=== PATIENT | female | born 1970 | race Caucasian/White ===

== ENCOUNTER 2017-12-21 12:18 | Observation (INO) | payer MEDICAID ==
[~2017-12-21] VITALS: Ht 177.8 cm; Wt 90.6 kg
[~2017-12-21 12:18] MED LIST: BAYER BACK & B1 EACH PO; CALCIUM ACETAT667 MG PO; DEPAKOTE ER500 MG PO; MIDODRINE HCL 55 M1 PO
[2017-12-21 12:21] VITALS: BP 140/83
[2017-12-21] MEDS ORDERED: LEXAPRO 10 MG T10 M1 PO (12:23)
[2017-12-21] MEDS ORDERED: ASPIR 8181 MG PO (12:23)
[2017-12-21 13:55] LABS: ABSOLUTE BASOPHILS 0.1 thou/uL (0.0-0.2); ABSOLUTE EOSINOPHILS 0.4 thou/uL (0.0-0.7); ABSOLUTE LYMPHOCYTES 2.3 thou/uL (0.8-5.3); ABSOLUTE MONOCYTES 0.6 thou/uL (0.0-1.2); ABSOLUTE NEUTROPHILS 5.6 thou/uL (1.6-8.1); EOSINOPHILS 4.8 %; HEMATOCRIT 38.9 % (37.0-47.0); HEMOGLOBIN 12.7 gm/dL (12.0-15.0); LYMPHOCYTES 25.5 %; MCH 30.6 pg (26.0-34.0); MCHC 32.6 g/dL (28.0-37.0); MCV 93.8 fL (80.0-100.0); MONOCYTES 6.9 %; MPV 10.6 fl. (7.2-11.1); NUCLEATED RBCS 0 /100WBC; PLATELET COUNT* 163 thou/uL (150-400); POLYS 61.8 %; RBC 4.14 mil/uL (4.20-5.00); RDW-CV 14.5 % (10.5-14.5)
[2017-12-21 14:03] LABS: URINE BILIRUBIN NEGATIVE (Negative); URINE BLOOD NEGATIVE (Negative); URINE CLARITY CLEAR; URINE COLOR YELLOW; URINE GLUCOSE-RANDOM NEGATIVE (Negative); URINE KETONES NEGATIVE (Negative); URINE LEUKOCYTES-REFLEX NEGATIVE (Negative); URINE NITRITE-REFLEX NEGATIVE (Negative); URINE PROTEIN NEGATIVE (Negative); URINE UROBILINOGEN 0.2 E.U./dl (0.2-1.0)
[2017-12-21 14:05] LABS: ANION GAP 5 mmol/L (7-16); APTT 27.6 Seconds (25.0-31.3); BUN 25 mg/dL (7-18); CALCIUM 9.1 mg/dL (8.5-10.1); CHLORIDE 105 mmol/L (98-107); CO2 27 mmol/L (21-32); GLUCOSE 91 mg/dL (70-99); INR 1.1; POTASSIUM 4.4 mmol/L (3.5-5.1); PROTIME 10.7 Seconds (9.20-11.50); SODIUM 137 mmol/L (136-145)
[2017-12-21 14:11] LABS: AMP/METHAMP Negative (Negative); BARBITURATES Negative (Negative); BENZODIAZEPINES Negative (Negative); COCAINE Negative (Negative); METHADONE Negative (Negative); OPIATES Negative (Negative); PCP Negative (Negative); THC Negative (Negative)
[2017-12-21 14:12] LABS: ALBUMIN 3.1 g/dL (3.4-5.0); ALKALINE PHOSPHATASE 86 U/L (46-116); LIPASE 136 U/L (73-393); SGOT 24 U/L (15-37); SGPT 32 U/L (30-65); TOTAL BILIRUBIN 0.1 mg/dL (<0.1-1.0); TROPONIN-I LEVEL <0.06 ng/mL (<0.06)
--- NOTE | 2017-12-21 16:57 | EKG ---
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
[2017-12-21 19:38] VITALS: BP 132/80
[2017-12-21 20:00] VITALS: BP 125/63
[2017-12-22 00:51] VITALS: BP 84/47
[2017-12-22 02:17] VITALS: BP 88/50
[2017-12-22 04:10] VITALS: BP 92/51
--- NOTE | 2017-12-22 05:01 | NUR ---
PT ARRIVED ON UNIT AT 1999 FROM ER VIA STRETCHER PT AMBULATED TO ROOM ORIENTED TO SURROUNDING, VS AND ASSESSMENT STABLE PT NSR ON THE MONITOR. PT REQUESTED TYLENOL FOR HEADACHE WITH POSITIVE EFFECT PT SLEPT THROUGH THE NIGHT WITHNO FURTHER COMPLAINTS. PTS BP SOFT BUT PT WAS ASYMPTOMATIC. WILL MONITOR
[2017-12-22 05:04] LABS: ABSOLUTE BASOPHILS 0.1 thou/uL (0.0-0.2); ABSOLUTE EOSINOPHILS 0.7 thou/uL (0.0-0.7); ABSOLUTE LYMPHOCYTES 3.4 thou/uL (0.8-5.3); ABSOLUTE MONOCYTES 0.6 thou/uL (0.0-1.2); ABSOLUTE NEUTROPHILS 3.7 thou/uL (1.6-8.1); BASOPHILS 1.7 %; EOSINOPHILS 7.8 %; HEMATOCRIT 34.8 % (37.0-47.0); HEMOGLOBIN 11.7 gm/dL (12.0-15.0); MCH 30.3 pg (26.0-34.0); MCHC 33.5 g/dL (28.0-37.0); MCV 90.6 fL (80.0-100.0); MONOCYTES 7.1 %; NUCLEATED RBCS 0 /100WBC; PLATELET COUNT* 148 thou/uL (150-400); POLYS 43.4 %; RBC 3.85 mil/uL (4.20-5.00); RDW-CV 13.7 % (10.5-14.5); WBC 8.5 thou/uL (4.0-11.0)
[2017-12-22 05:39] LABS: CALCIUM 8.7 mg/dL (8.5-10.1); POTASSIUM 4.8 mmol/L (3.5-5.1)
[2017-12-22 08:00] VITALS: BP 89/52
--- NOTE | 2017-12-22 10:39 | NUR ---
MET WITH PT TO DISCUSS HOME SITUATION/DC PLANNING. PT LIVES WITH HER DTR IN [place]. STATES IS INDEPENDENT 'BUT NOT HOW I USED TO BE.' SHE IS NOT DRIVING YET AFTER A PROLONGED ILLNESS. FAMILY ASSISTS. PT USES NO EQUIPMENT OR HOME CARE. PLANS TO RETURN HOME AT DC. HAS F/U APPTS AT IN PLACE. DENIES DC NEEDS. HOPES TO GO HOME TODAY
[2017-12-22 12:13] VITALS: BP 102/56
--- NOTE | 2017-12-22 15:55 | EXE ---
[place] [address] STRESS ECHOCARDIOGRAM Name: STEPHENIE POWELL Room: [address] MIsmael#: [id number] Admission: 12/21/17 Attend Phys: Justin Werner Discharge: Date of : 70 Date of Service: 12/22/17 1555 Report #: [id number] THIS REPORT FOR: //name// APPROVED REPORT Exam: Stress Echocardiogram Indication: Chest pain Patient Location: In-Patient Stress Nurse: Rema Hough RN Room #: [facility] Supervising Physician: Molina Webb MD Ht: 5 ft 10 in HR: 55 bpm BP: 106/60 mmHg Medical History Cardiac Risk Factors: Tobacco History (Former) Procedure The patient underwent an Exercise Stress Test using the Steven Protocol. Blood pressure, heart rate, and EKG were monitored. An Echocardiogram was performed by nutrition technician in four stages in quad fashion. At peak stress, four selected images were obtained and placed side by side with resting images for comparison. Stress Test Details Stress Test: Exercise stress testing was performed using a Steven protocol. HR Resting HR: 55 bpm Max Heart Rate (APMHR): 173 bpm Max HR Achieved: 152 bpm Target HR (85% APMHR): 147 bpm % of APMHR: 87 Recovery HR: 82 bpm HR response to stress: Normal HR response to stress BP Resting BP: 106/60 mmHg Max BP: 189/89 mmHg Recovery BP: 147/83 mmHg ECG Resting ECG: Sinus Rhythm Stress ECG: Sinus Rhythm, nonspecific ST-T abnormalities ST Change: Upsloping ST depression Maximum ST Deviation: 0.5 [place] [address] STRESS ECHOCARDIOGRAM Name: STEPHENIE POWELL Room: [address]#: [id number] Admission: 12/21/17 Attend Phys: Justin Werner Discharge: Date of : 70 Date of Service: 12/22/17 1555 Report #: [id number] Recovery ECG: Sinus Rhythm, nonspecific ST-T abnormalities Recovery ST Change: Horizontal ST depression Recovery ST Deviation: 0.5 mm Clinical Exercise duration: 5 min 58 sec Highest Stage Achieved: Stage 2: 2.5 mph at 12% grade. Exercise capacity: 7.05 METs Pre-Stress Echo The resting Echocardiogram showed normal left ventricular contractility with an estimated Ejection Fraction of about 55-60%. Post-Stress Echo The stress Echocardiogram showed normal left ventricular contractility with an estimated Ejection Fraction of about 65-70%. Conclusion Clinical Response: Non-ischemic Exercise Capacity: Below Average Stress ECG Response: Indeterminant Stress Echo Images: Non-ischemic nondiagnostic stress echo for ischemia secondary to inability to achieve target heart rate Other Information Study Quality: Good <Conclusion> nondiagnostic stress echo for ischemia secondary to inability to achieve target heart rate <ELECTRONICALLY SIGNED> By: Molina Webb MD, FACC 12/22/17 1555 1555 1555 Molina Webb MD, FACC /INF
[2017-12-22 16:17] VITALS: BP 103/63
--- NOTE | 2017-12-22 18:06 | NUR ---
ASSUMED CARE OF PT AT 0730. PT A&O X4 CALM AND COOPERATIVE. THE PT WENT DOWN TO HAVE A STRESS ECHO TODAY AND UPON RETURN ASKED THIS NURSE ABOUT LEAVING. PT STATED SHE WAAS TOLD THAT SHE COULD LEAVE AFTER THE TEST BY SEVERAL DOCTORS. SHE STATED THAT SHE WISHES TO LEAVE AMA, NEUROLOGY HAD NOT SIGNED OFF ON THE PT YET. PT WAS EDUCATED ON THE RISK OF AMA DISCHARGE AND VERBALLIZED UNDERSTANDING. IV AND COMPUTER AIDED DRAFTER WERE REMOVED, PT DENIES ANY PAIN INCLUDING CHEST PAIN AND VS AT THIS TIME ARE BP 96/60, HR 64, RESP. 17. TEMP. 98.3, AND O2 SAT 99% ON ROOM AIR.
--- NOTE | 2017-12-23 16:38 | CON ---
[address] [address] CONSULTATION Name: STEPHENIE POWELL Room: [address] Ann Whyte#: [id number] Admission: 12/21/17 Attend Phys: Sasha Kidd Discharge: 12/22/17 Date of : 70 Report #: [id number] THIS REPORT FOR: //name// CC: Tanner Werner ____ Maren DATE OF SERVICE: 12/22/2017 HISTORY OF PRESENT ILLNESS: The patient is a 47-year-old single white female who I was asked to see in the hospital after she complained of chest pain. The patient has no previous history of heart disease. She actually presented here to [facility] last July. The patient was found on the floor of her bathroom. 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 She went into atrial fibrillation. She is on IV diltiazem, saw Dr. Henry. She required dialysis for renal failure. She was hypotensive. She eventually was transferred to and was there for 2 weeks. She is now back home. 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 She has been going for walks recently. Yesterday, she was at home, felt heaviness in her chest. She has had some pain in her left shoulder. She felt lightheaded, short of breath and nauseated. Her sister brought her to the Emergency Room and she was admitted. She denied any trauma to the shoulder. She denied any chest pain related to food. She has had no blood in stool. She denied any trauma to her chest or rash. She denies exertional dyspnea, palpitations or syncope. She has had no edema. PAST MEDICAL HISTORY: Otherwise significant for back surgery. She has no history of hypertension, diabetes, or hyperlipidemia. ALLERGIES: She is on no medications. FAMILY HISTORY: Her grandfather had coronary bypass surgery. SOCIAL HISTORY: She is single, lives in [place] with a friend. 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 She used to be a smoker, quit in July. No alcohol, no illicit drug use. REVIEW OF SYSTEMS: She has had a history of stroke, asthma. She has a history of dyspepsia. No liver disease. She has had kidney stones. No cancer, no psychiatric illness. PHYSICAL EXAMINATION: GENERAL: Revealed a middle-aged female, lying in bed. She appeared in no distress. VITAL SIGNS: She had a blood pressure of 100/60, pulse 60. [place] [address] CONSULTATION Name: STEPHENIE POWELL Room: [address] Ann Whyte#: [id number] Admission: 12/21/17 Attend Phys: Sasha Kidd Discharge: 12/22/17 Date of : 70 Report #: [id number] HEENT: She was anicteric, conjunctiva pink. Mucous members appear moist. NECK: Veins nondistended. No carotid bruits. Neck is supple. CHEST: Clear to auscultation. CARDIOVASCULAR: Regular rate and rhythm. No significant murmur. ABDOMEN: Soft, nontender. EXTREMITIES: Had no edema. Posterior tibial pulse 2+ bilaterally. SKIN: Warm, dry. NEUROLOGIC: Nonfocal. Her ECG showed a sinus rhythm. There was no ST or T-wave change. LABORATORY DATA: Sodium 144, BUN 21, creatinine 1.0. Liver function studies were normal. Troponin 0.06. Her white blood cell count was 8.5, hematocrit 34.8. X-rays in the emergency room yesterday, she had portable chest x-ray that showed no acute abnormality. CT scan of the head performed without contrast showed no acute abnormality. IMPRESSION AND RECOMMENDATIONS: 1. Chest pain. Atypical for angina. The patient has minimal risk factors. I suspect her pain is noncardiac. Recommend no cardiac evaluation at this time. 2. Abnormal ECG. Recommend echo. 3. Previous history of ethylene glycol toxicity. 4. History of renal failure, appears to have resolved. 5. Dizziness. No arrhythmia noted on the monitor. <ELECTRONICALLY SIGNED> By: Molina Webb MD, FACC 12/23/17 1638 0924 [id number] Webb MD, FACC /nt
--- NOTE | 2017-12-29 19:06 | CON ---
[facility] [address] [place] [address] CONSULTATION Name: STEPHENIE POWELL Room: [address] Ann Whyte#: [id number] Admission: 12/21/17 Attend Phys: Sasha Kidd Discharge: 12/22/17 Date of : 70 Report #: [id number] THIS REPORT FOR: //name// CC: Tanner Werner DATE OF SERVICE: 12/22/2017 HISTORY OF PRESENT ILLNESS: This is a 47-year-old female patient who indicates that she had ethylene glycol poisoning. She had seizures at that time. She does not know how she got the poisoning. I reviewed the records and it looks like this patient had seen Dr. Escudero at that time. I do not have any records from [facility]. She said she had seizures and she was put on Keppra. At this time, she is admitted with chest pain. She indicated she was pretty healthy until that admission in July. At this time, she was admitted because she had chest pain and she had dizziness. This happened when she was standing. She indicates she has got stressed out with everything going on. REVIEW OF SYSTEMS: Indicate that she did have ethylene glycol poisoning. She had this episode, which does not look like seizure. She did have a CT scan of the head done which was reviewed and it was unremarkable. She apparently had CT scan done at [facility] and she also had MRIs done there. She believes she may have had some EEGs there also. She does not know the results. Here she looks like she had spinal tap done the last time and that did not show any abnormality. I do not see any MRI here. I do not believe she had an EEG here either. She takes Depakote and she is not having any active seizure. Last Depakote level was 80.9, which is therapeutic. I do not see any ammonia levels on her. This was her relevant 14-point review of system. PAST MEDICAL HISTORY: Positive for what she described as ethylene glycol poisoning, which she indicates may have happened because of the work. PAST MEDICAL HISTORY: As described above. She does have a history of seizure and she is on Depakote. FAMILY HISTORY: Unremarkable. SOCIAL HISTORY: She says she drank alcohol once a while, but not very commonly. PHYSICAL EXAMINATION: Indicate she is alert. She is responsive. She can follow simple commands. She believes her fund of knowledge and memory is at her baseline. Cranial nerve examinations 2-12 is unremarkable, no meningeal sign, no cerebellar sign. Neuromuscular examination is symmetrical. She is a very well developed individual whose hearing and vision is adequate. Cardiac examinations appear unremarkable. No respiratory difficulties present. Pulses are normal. Blood pressure is 102/56, respirations 18, pulse is 54, temperature [facility] [address] [place] [address] CONSULTATION Name: STEPHENIE POWELL Room: [address] Ann Whyte#: [id number] Admission: 12/21/17 Attend Phys: Sasha Kidd Discharge: 12/22/17 Date of : 70 Report #: [id number] is 97.9. LABORATORY DATA: Indicate WBC count of 8.5. Head CT was unremarkable. IMPRESSION: Clinically, the episode she had does not like seizure. She already had an extensive workup and have a neurologist at [facility]. I will check an EEG just to make sure that there are no other problems going on in this patient and then decide whether to do an MRI in this patient or not. RECOMMENDATION: 1. EEG. 2. Get the record from [facility]. 3. Ammonia level. 4. Reevaluate the situation after that time and see if we need to do any further workup including a repeat MRI or not in this patient. Thank you very much for this referral and if you have any question, please feel free to contact me. I discussed all of it with the patient in detail and she understands that and she wants to follow this plan. <ELECTRONICALLY SIGNED> By: Brandyn Oakley MD 12/29/17 1906 1323 [id number] Oakley MD /nt
--- NOTE | 2017-12-29 19:06 | EEG ---
[address] [address] EEG STUDY REPORT Name: STEPHENIE POWELL Room: [address] Isabell#: [id number] Admission: 12/21/17 Attend Phys: Sasha Kidd Discharge: 12/22/17 Date of : 70 Report #: [id number] THIS REPORT FOR: //name// CC: Tanner Werner DATE OF SERVICE: 12/22/2017 This patient has a history of seizure and is being evaluated for dizziness. EEG was done by placing the electrodes by standard 10-20 system of electrode placement. Both referential and sequential montages were used for recording. Background activity in this patient's EEG is about 9 Hz and 30 microvolt. This patient went to sleep that is associated with bilaterally symmetrical sleep spindle and vertex sharp waves. Photic stimulation was unremarkable. Throughout the record, no active epileptiform activity was noted. IMPRESSION: This patient's EEG is within normal limit. Thank you very much for this referral. <ELECTRONICALLY SIGNED> By: Brandyn Oakley MD 12/29/171905 31 56Brandyn Oakley MD /nt
== END 2017-12-22 18:16 | disposition left against medical advice (07) ==
LOC: M.ERS 12:18 → M.TBA-ER 17:21 → M.2W 17:21
PROVIDERS: Physician Assistant; ADMIT Internal Medicine
DX: R07.9 Chest pain, unspecified (principal); N18.3 Chronic kidney disease, stage 3 (moderate); R06.02 Shortness of breath; R11.0 Nausea; F32.9 Major depressive disorder, single episode, unspecified; G40.909 Epilepsy, unspecified, not intractable, without status epilepticus; I48.91 Unspecified atrial fibrillation; I25.2 Old myocardial infarction; J96.90 Respiratory failure, unspecified, unspecified whether with hypoxia or hypercapnia; I95.9 Hypotension, unspecified; I20.8 Other forms of angina pectoris; T52.8X1A Toxic effect of other organic solvents, accidental (unintentional), initial encounter; G92 Toxic encephalopathy; Z99.2 Dependence on renal dialysis

== ENCOUNTER → 2018-05-23 | Outpatient (CLI) | payer MEDICAID ==
[~2018-05-23] MED LIST changes: +ASPIR 8181 MG PO; +LEXAPRO 10 MG T10 M1 PO
--- NOTE | 2018-05-23 15:56 | 2DMMODE ---
[place] [address] 2 D/M-MODE ECHOCARDIOGRAM Name: STEPHENIE POWELL Room: [facility]#: [id number] Admission: 05/23/18 Attend Phys: Batsheva Pierre, Discharge: Date of : 70 Date of Service: 05/23/18 1556 Report #: [id number] THIS REPORT FOR: //name// APPROVED REPORT Study performed: 05/23/2018 14:19:27 EXAM: Comprehensive 2D, Doppler, and color-flow Echocardiogram Patient Location: Out-Patient Status: routine BSA: 2.13 HR: 82 bpm BP: 106/60 mmHg Other Information Study Quality: Good Indications Palpitations 2D Dimensions LVEF(%): 54.81 (>50%) IVSd: 11.58 (7-11mm) LVOT Diam: 20.20 (18-24mm) LVDd: 42.32 mm PWd: 8.88 (7-11mm) Ascending Ao: 25.12 (22-36mm) LVDs: 30.40 (25-40mm) Aortic Root: 26.23 mm Gifford's LVEF: 54.81 % Volumes Left Atrial Volume (Systole) LA ESV Index: 10.70 mL/m2 Aortic Valve AoV Peak Mateo.: 1.30 m/s AO Peak Gr.: 6.71 mmHg LVOT Max P.51 mmHg AO Mean Gr.: 3.52 mmHg LVOT Mean P.92 mmHg LVOT Max V: 1.06 m/s AO V2 VTI: 20.84 cm LVOT Mean V: 0.63 m/s THERESE (VTI): 2.81 cm2 LVOT V1 VTI: 18.28 cm Mitral Valve E/A Ratio: 0.97 MV Decel. Time: 215.48 [place] [address] 2 D/M-MODE ECHOCARDIOGRAM Name: STEPHENIE POWELL Room: [facility]#: [id number] Admission: 05/23/18 Attend Phys: Batsheva Pierre, Discharge: Date of : 70 Date of Service: 05/23/18 1556 Report #: [id number] MV E Max Mateo.: 0.55 m/s MV PHT: 62.49 ms MVA (PHT): 3.52 cm2 TDI E/Lateral E': 3.93 E/Medial E': 5.50 Medial E' Mateo.: 0.10 m/s Lateral E' Mateo.: 0.14 m/s Pulmonary Valve PV Peak Mateo.: 1.03 m/s PV Peak Gr.: 4.24 mmHg Tricuspid Valve TR Peak Gr.: 16.76 mmHg RVSP: 21.76 mmHg Left Ventricle The left ventricle is normal size. There is normal LV segmental wall motion. There is normal left ventricular wall thickness. Left ventricular systolic function is normal. LVEF is 55-60%. The left ventricular diastolic function is normal. Right Ventricle The right ventricle is normal size. The right ventricular systolic function is normal. Atria The left atrium size is normal. The right atrium size is normal. Aortic Valve The aortic valve is normal in structure. No aortic regurgitation is present. There is no aortic valvular stenosis. Mitral Valve The mitral valve is normal in structure. There is no mitral valve regurgitation noted. No evidence of mitral valve stenosis. Tricuspid Valve The tricuspid valve is normal in structure. Mild tricuspid regurgitation. The RVSP is _21.8 mmHg. Pulmonic Valve The pulmonary valve is normal in structure. There is no pulmonic valvular regurgitation. [place] [address] 2 D/M-MODE ECHOCARDIOGRAM Name: STEPHENIE POWELL Room: [facility]#: [id number] Admission: 05/23/18 Attend Phys: Batsheva Pierre, Discharge: Date of : 70 Date of Service: 05/23/18 1556 Report #: [id number] The aortic root is normal in size. IVC is normal in size and collapses with >50% inspiration Pericardium There is no pericardial effusion. <Conclusion> The left ventricle is normal size. There is normal left ventricular wall thickness. Left ventricular systolic function is normal. LVEF is 55-60%. The left ventricular diastolic function is normal. Mild tricuspid regurgitation. The RVSP is _21.8 mmHg. IVC is normal in size and collapses with >50% inspiration <ELECTRONICALLY SIGNED> By: Geovany Henry MD, FACC 05/23/18 1556 1556 1556 Geovany Henry MD, FACC /INF
--- NOTE | 2018-05-23 16:03 | EKG ---
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[facility] : 1970 Requested By: Batsheva Pierre Order Number: [id number] Bryson MD: Geovany Henry Measurements Intervals [place] Rate: 86 P: 41 HI: 119 QRS: 32 QRSD: 79 T: 167 QT: 349 QTc: 418 Interpretive Statements Sinus rhythm Borderline short HI interval Nonspecific T abnormalities, lateral leads Compared to ECG 12/21/2017 12:25:04 T-wave abnormality now present Electronically Signed On 05-23-2018 16:03:13 CDT by Geovany Henry [email or web address] <ELECTRONICALLY SIGNED> By: Geovany Henry MD, [facility] 05/23/18 1603 1354 1354 Geovany Henry MD, [facility] /EPI
== END ==
LOC: M.CRD 05-04 12:54
DX: I07.1 Rheumatic tricuspid insufficiency (principal)

== ENCOUNTER 2018-11-12 00:33 | Emergency (ER) | payer OTHER ==
[~2018-11-12] VITALS: Ht 177.8 cm; Wt 99.8 kg
[2018-11-12 02:27] LABS: CALCIUM 9.1 mg/dL (8.5-10.1); CREATININE 0.9 mg/dL (0.6-1.3); POTASSIUM 3.2 mmol/L (3.5-5.1)
[2018-11-12 02:32] LABS: ALBUMIN 3.3 g/dL (3.4-5.0); TOTAL BILIRUBIN 0.1 mg/dL (<0.1-1.0); TOTAL PROTEIN 7.2 g/dL (6.4-8.2)
[2018-11-12 03:02] LABS: INR 1.6; PROTIME 16.5 Seconds (9.20-11.50)
[2018-11-12] MEDS ORDERED: NORCO 5-325 TA1 EACH PO (03:37)
[2018-11-12] MEDS ORDERED: KEFLEX500 M1 PO (03:37)
[2018-11-12] MEDS ORDERED: TORADOL 10 MG T10 MG PO (03:37)
[2018-11-12 05:20] VITALS: BP 109/67
== END 2018-11-12 05:20 | disposition home or self-care (01) ==
LOC: M.ERS 00:33
PROVIDERS: Personal Emergency Response Attendant
DX: L03.116 Cellulitis of left lower limb (principal)

== ENCOUNTER 2019-02-02 09:38 | Inpatient (IN) | payer OTHER ==
[~2019-02-02] VITALS: Ht 177.8 cm; Wt 97.5 kg
[~2019-02-02 09:38] MED LIST changes: +KEFLEX500 M1 PO; +NORCO 5-325 TA1 EACH PO; +TORADOL 10 MG T10 MG PO
[2019-02-02 09:45] VITALS: BP 133/83
[2019-02-02] MEDS ORDERED: NORTRIPTYLINE H10 M2 PO (09:51)
[2019-02-02 10:47] LABS: ABSOLUTE BASOPHILS 0.1 thou/uL (0.0-0.2); ABSOLUTE EOSINOPHILS 0.5 thou/uL (0.0-0.7); ABSOLUTE LYMPHOCYTES 2.2 thou/uL (0.8-5.3); ABSOLUTE MONOCYTES 0.7 thou/uL (0.0-1.2); ABSOLUTE NEUTROPHILS 3.7 thou/uL (1.6-8.1); EOSINOPHILS 7.2 %; HEMATOCRIT 39.8 % (37.0-47.0); HEMOGLOBIN 13.1 gm/dL (12.0-15.0); LYMPHOCYTES 29.9 %; MCH 29.8 pg (26.0-34.0); MCV 90.2 fL (80.0-100.0); MONOCYTES 10.1 %; NUCLEATED RBCS 0 /100WBC; PLATELET COUNT* 157 thou/uL (150-400); POLYS 51.8 %; RBC 4.41 mil/uL (4.20-5.00); RDW-CV 14.6 % (10.5-14.5); WBC 7.2 thou/uL (4.0-11.0)
[2019-02-02 10:48] LABS: URINE BILIRUBIN NEGATIVE (Negative); URINE BLOOD 1+ (Negative); URINE CLARITY CLEAR; URINE COLOR YELLOW; URINE GLUCOSE-RANDOM NEGATIVE (Negative); URINE KETONES NEGATIVE (Negative); URINE LEUKOCYTES-REFLEX NEGATIVE (Negative); URINE NITRITE-REFLEX NEGATIVE (Negative); URINE PROTEIN NEGATIVE (Negative); URINE SPECIFIC GRAVITY 1.025 (1.005-1.030); URINE UROBILINOGEN 0.2 E.U./dl (0.2-1.0)
[2019-02-02 10:55] LABS: BACTERIA-REFLEX 1-9 Few /HPF (None Seen); CASTS None Seen /LPF (None Seen); CRYSTALS None Seen /LPF (None Seen); SQUAMOUS 0-3 Few /LPF (0-3); URINE RBC 0-2 Rare /HPF (0-2); URINE WBC-REFLEX 0-5 Rare /HPF (0-5)
[2019-02-02 11:03] LABS: ANION GAP 8 mmol/L (7-16); BUN 20 mg/dL (7-18); CALCIUM 8.4 mg/dL (8.5-10.1); CHLORIDE 110 mmol/L (98-107); CO2 27 mmol/L (21-32); CREATININE 1.3 mg/dL (0.6-1.3); GLUCOSE 80 mg/dL (70-99); POTASSIUM 3.7 mmol/L (3.5-5.1); SODIUM 145 mmol/L (136-145); TROPONIN-I LEVEL <0.06 ng/mL (<0.06)
[2019-02-02 11:05] LABS: ALBUMIN 3.1 g/dL (3.4-5.0); ALKALINE PHOSPHATASE 73 U/L (46-116); NT-PRO BRAIN NAT PEPTIDE 134 pg/mL (<300); SGOT 17 U/L (15-37); SGPT 12 U/L (30-65); TOTAL PROTEIN 6.6 g/dL (6.4-8.2)
[2019-02-02 11:08] LABS: TOTAL BILIRUBIN < 0.1 mg/dL (<0.1-1.0)
[2019-02-02 14:09] VITALS: BP 118/75
[2019-02-02 14:20] VITALS: BP 137/80
--- NOTE | 2019-02-02 15:55 | 2DMMODE ---
[place] [address] 2 D/M-MODE ECHOCARDIOGRAM Name: ANDRESTEPHENIE Room: [address] IN [facility]#: [id number] Admission: 02/02/19 Attend Phys: Justin Werner Discharge: Date of : 70 Date of Service: 02/02/19 1555 Report #: [id number] THIS REPORT FOR: //name// APPROVED REPORT Study performed: 02/02/2019 15:06:07 EXAM: Comprehensive 2D, Doppler, and color-flow Echocardiogram Patient Location: In-Patient Room #: [facility] Status: routine BSA: 2.15 HR: 70 bpm BP: 118/75 mmHg Rhythm: NSR Other Information Study Quality: Good Indications CAD swelling 2D Dimensions IVSd: 11.25 (7-11mm) LVOT Diam: 19.29 (18-24mm) LVDd: 48.70 mm PWd: 11.02 (7-11mm) Ascending Ao: 28.13 (22-36mm) LVDs: 28.91 (25-40mm) Aortic Root: 29.27 mm Volumes Left Atrial Volume (Systole) LA ESV Index: 21.20 mL/m2 Aortic Valve AoV Peak Mateo.: 1.38 m/s AO Peak Gr.: 7.56 mmHg LVOT Max P.26 mmHg AO Mean Gr.: 3.84 mmHg LVOT Mean P.02 mmHg LVOT Max V: 1.35 m/s AO V2 VTI: 31.61 cm LVOT Mean V: 0.79 m/s THERESE (VTI): 2.65 cm2 LVOT V1 VTI: 28.71 cm Mitral Valve E/A Ratio: 1.57 MV Decel. Time: 223.77 [place] [address] 2 D/M-MODE ECHOCARDIOGRAM Name: STEPHENIE POWELL Room: [address] IN ..#: [id number] Admission: 02/02/19 Attend Phys: Justin Werner Discharge: Date of : 70 Date of Service: 02/02/19 1555 Report #: [id number] MV E Max Mateo.: 1.07 m/s MV PHT: 64.89 ms MVA (PHT): 3.39 cm2 TDI E/Lateral E': 6.29 E/Medial E': 8.23 Medial E' Mateo.: 0.13 m/s Lateral E' Mateo.: 0.17 m/s Pulmonary Valve PV Peak Mateo.: 0.99 m/s PV Peak Gr.: 3.94 mmHg Tricuspid Valve RAP Estimate: 5.00 mmHg TR Peak Gr.: 20.23 mmHg RVSP: 25.00 mmHg PA Pressure: 25.00 mmHg Left Ventricle The left ventricle is normal size. There is normal LV segmental wall motion. There is normal left ventricular wall thickness. Left ventricular systolic function is normal. The left ventricular ejection fraction is within the normal range. LVEF is 60-65%. The left ventricular diastolic function is normal. Right Ventricle The right ventricle is normal size. The right ventricular systolic function is normal. Atria The left atrium size is normal. The right atrium size is normal. Aortic Valve The aortic valve is normal in structure. No aortic regurgitation is present. There is no aortic valvular stenosis. Mitral Valve The mitral valve is normal in structure. Trace mitral regurgitation. No evidence of mitral valve stenosis. Tricuspid Valve The tricuspid valve is normal in structure. Trace tricuspid regurgitation. No pulmonary hypertension. Pulmonic Valve The pulmonary valve is normal in structure. There [place] [address] 2 D/M-MODE ECHOCARDIOGRAM Name: STEPHENIE POWELL Room: [address] [place] [facility]#: [id number] Admission: 02/02/19 Attend Phys: Justin Werner Discharge: Date of : 70 Date of Service: 02/02/19 1555 Report #: [id number] valvular regurgitation. Great Vessels The aortic root is normal in size. IVC is normal in size and collapses >50% with inspiration. Pericardium There is no pericardial effusion. <Conclusion> LVEF is 60-65%. There is normal LV segmental wall motion. There is no aortic valvular stenosis. No aortic regurgitation is present. Trace mitral regurgitation. <ELECTRONICALLY SIGNED> By: Fermín Wilks MD, FACC 02/02/19 1555 1555 1555 Fermín Wilks MD, FACC /INF
[2019-02-02 16:19] VITALS: BP 102/56
[2019-02-02 20:05] VITALS: BP 95/53
[2019-02-03 09:30] VITALS: BP 116/76
[2019-02-03] MEDS ORDERED: VANCOCIN 125 M125 M1 PO (12:31)
[2019-02-03] MEDS ORDERED: BACTRIM DS TAB1 EACH PO (12:44)
[2019-02-03 14:44] VITALS: BP 116/76
== END 2019-02-03 15:35 | disposition home or self-care (01) | DRG 602 ==
LOC: M.ERS 09:38 → M.3W 11:17 → M.TBA-ER 11:17 → M.3W 14:18
PROVIDERS: Physician Assistant; ADMIT Internal Medicine
DX: L03.116 Cellulitis of left lower limb (principal); N18.6 End stage renal disease; L03.115 Cellulitis of right lower limb; Z99.2 Dependence on renal dialysis; I25.2 Old myocardial infarction; Z87.891 Personal history of nicotine dependence; Z79.82 Long term (current) use of aspirin; Z79.899 Other long term (current) drug therapy

== ENCOUNTER 2019-08-20 12:16 | Emergency (ER) | payer OTHER ==
[~2019-08-20] VITALS: Ht 177.8 cm; Wt 95.3 kg
[~2019-08-20 12:16] MED LIST changes: +BACTRIM DS TAB1 EACH PO; +NORTRIPTYLINE H10 M2 PO; +VANCOCIN 125 M125 M1 PO
[2019-08-20 12:39] LABS: URINE BILIRUBIN NEGATIVE (Negative); URINE BLOOD TRACE (Negative); URINE CLARITY CLEAR; URINE COLOR YELLOW; URINE GLUCOSE-RANDOM NEGATIVE (Negative); URINE KETONES TRACE (Negative); URINE LEUKOCYTES-REFLEX NEGATIVE (Negative); URINE NITRITE-REFLEX NEGATIVE (Negative); URINE PROTEIN NEGATIVE (Negative); URINE SPECIFIC GRAVITY 1.015 (1.005-1.030); URINE UROBILINOGEN 0.2 E.U./dl (0.2-1.0)
[2019-08-20 12:40] LABS: ABSOLUTE BASOPHILS 0.1 thou/uL (0.0-0.2); ABSOLUTE EOSINOPHILS 0.3 thou/uL (0.0-0.7); ABSOLUTE LYMPHOCYTES 1.7 thou/uL (0.8-5.3); ABSOLUTE MONOCYTES 0.5 thou/uL (0.0-1.2); ABSOLUTE NEUTROPHILS 4.5 thou/uL (1.6-8.1); BASOPHILS 1.2 %; EOSINOPHILS 3.6 %; HEMATOCRIT 47.3 % (37.0-47.0); LYMPHOCYTES 24.6 %; MCH 31.6 pg (26.0-34.0); MCHC 33.7 g/dL (28.0-37.0); MCV 93.8 fL (80.0-100.0); MONOCYTES 6.8 %; MPV 10.8 fl. (7.2-11.1); NUCLEATED RBCS 0 /100WBC; PLATELET COUNT* 158 thou/uL (150-400); POLYS 63.8 %; RBC 5.04 mil/uL (4.20-5.00); WBC 7.1 thou/uL (4.0-11.0)
[2019-08-20 12:48] LABS: ANION GAP 10 mmol/L (7-16); BUN 8 mg/dL (7-18); CALCIUM 8.8 mg/dL (8.5-10.1); CHLORIDE 108 mmol/L (98-107); CO2 25 mmol/L (21-32); CREATININE 0.9 mg/dL (0.6-1.3); GLUCOSE 102 mg/dL (70-99); POTASSIUM 4.2 mmol/L (3.5-5.1); SODIUM 143 mmol/L (136-145)
[2019-08-20 12:58] LABS: ALBUMIN 3.8 g/dL (3.4-5.0); ALKALINE PHOSPHATASE 86 U/L (46-116); LIPASE 86 U/L (73-393); SGOT 18 U/L (15-37); SGPT 24 U/L (30-65); TOTAL BILIRUBIN 0.2 mg/dL (<0.1-1.0); TOTAL PROTEIN 7.6 g/dL (6.4-8.2); TROPONIN-I LEVEL <0.06 ng/mL (<0.06)
[2019-08-20] MEDS ORDERED: ZOFRAN ODT4 MG DISSOLVE (14:23)
[2019-08-20] MEDS ORDERED: NORCO 5-325 TA1 EAC1 PO (14:23)
[2019-08-20 14:43] VITALS: BP 148/84
--- NOTE | 2019-08-22 14:49 | EKG ---
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1970 Requested By: Dinesh Nicole Order Number: [id number] MD: Nestor Piedra Measurements Intervals [place] Rate: 63 P: 3 DE: 105 QRS: 22 QRSD: 99 T: 2 QT: 414 QTc: 424 Interpretive Statements Sinus arrhythmia Short [place] interval Borderline T abnormalities, inferior leads Compared to ECG 05/23/2018 13:54:39 T-wave abnormality still present Electronically Signed On 08-22-2019 14:49:36 CDT by Nestor Piedra [email or web address] <ELECTRONICALLY SIGNED> By: Nestor Piedra MD, [facility] 08/22/19 1449 1244 1244 Nestor Piedra MD, FAC /EPI
== END 2019-08-20 14:46 | disposition home or self-care (01) ==
LOC: M.ERS 12:16
PROVIDERS: Emergency Medicine Emergency Medical Services
DX: R10.12 Left upper quadrant pain (principal); R11.2 Nausea with vomiting, unspecified; Z87.891 Personal history of nicotine dependence; Z99.2 Dependence on renal dialysis

== ENCOUNTER 2020-07-16 11:49 | Emergency (ER) | payer OTHER ==
[~2020-07-16] VITALS: Ht 177.8 cm; Wt 95.3 kg
[~2020-07-16 11:49] MED LIST changes: +NORCO 5-325 TA1 EAC1 PO; +ZOFRAN ODT4 MG DISSOLVE
[2020-07-16 12:11] LABS: URINE BILIRUBIN NEGATIVE (Negative); URINE BLOOD TRACE (Negative); URINE CLARITY CLEAR; URINE COLOR YELLOW; URINE GLUCOSE-RANDOM NEGATIVE (Negative); URINE KETONES NEGATIVE (Negative); URINE LEUKOCYTES-REFLEX NEGATIVE (Negative); URINE NITRITE-REFLEX NEGATIVE (Negative); URINE PROTEIN NEGATIVE (Negative); URINE UROBILINOGEN 0.2 E.U./dl (0.2-1.0)
[2020-07-16 12:22] LABS: ABSOLUTE BASOPHILS 0.1 thou/uL (0.0-0.2); ABSOLUTE EOSINOPHILS 0.2 thou/uL (0.0-0.7); ABSOLUTE LYMPHOCYTES 2.2 thou/uL (0.8-5.3); ABSOLUTE MONOCYTES 0.5 thou/uL (0.0-1.2); ABSOLUTE NEUTROPHILS 5.9 thou/uL (1.6-8.1); BASOPHILS 1.2 %; EOSINOPHILS 2.1 %; HEMOGLOBIN 14.4 gm/dL (12.0-15.0); LYMPHOCYTES 24.6 %; MCH 31.5 pg (26.0-34.0); MCHC 34.4 g/dL (28.0-37.0); MCV 91.6 fL (80.0-100.0); MONOCYTES 5.6 %; MPV 10.6 fl. (7.2-11.1); NUCLEATED RBCS 0 /100WBC; PLATELET COUNT* 155 thou/uL (150-400); POLYS 66.5 %; RBC 4.59 mil/uL (4.20-5.00); RDW-CV 14.1 % (10.5-14.5); WBC 8.9 thou/uL (4.0-11.0)
[2020-07-16 12:34] LABS: CALCIUM 8.6 mg/dL (8.5-10.1); CREATININE 0.9 mg/dL (0.6-1.3); POTASSIUM 4.1 mmol/L (3.5-5.1)
[2020-07-16 12:39] LABS: ALBUMIN 3.5 g/dL (3.4-5.0); TOTAL BILIRUBIN 0.3 mg/dL (<0.1-1.0)
[2020-07-16] MEDS ORDERED: NORCO 5-325 TA1 EAC2 PO (14:21)
[2020-07-16] MEDS ORDERED: CARAFATE1 GM/10 ML PO (14:21)
[2020-07-16] MEDS ORDERED: OMEPRAZOLE 20 M20 M1 PO (14:21)
[2020-07-16] MEDS ORDERED: ONDANSETRON HCL4 M2 PO (14:34)
[2020-07-16 14:42] VITALS: BP 121/62
--- NOTE | 2020-07-16 17:14 | EKG ---
[place] [address] ELECTROCARDIOGRAM REPORT Name: STEPHENIE POWELL Room: 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: TP : 1970 Requested By: Julian Swanson Order Number: [id number] MD: Nestor Piedra Measurements Intervals [place] Rate: 63 P: -16 UT: 112 QRS: 39 QRSD: 91 T: 17 QT: 419 QTc: 429 Interpretive Statements Sinus rhythm Borderline short [place] interval Compared to ECG 08/20/2019 12:44:29 Sinus arrhythmia no longer present T-wave abnormality no longer present Electronically Signed On 07-16-2020 17:14:33 CDT by Nestor Piedra [email or web address] <ELECTRONICALLY SIGNED> By: Nestor Piedra MD, [facility] 07/16/20 1714 1233 1233 Nestro Piedra MD, [facility] /EPI
== END 2020-07-16 14:43 | disposition home or self-care (01) ==
LOC: M.ERS 11:49
PROVIDERS: Family Medicine
DX: N83.201 Unspecified ovarian cyst, right side (principal); N84.0 Polyp of corpus uteri; N28.1 Cyst of kidney, acquired; F17.210 Nicotine dependence, cigarettes, uncomplicated

== ENCOUNTER 2021-03-12 14:37 | Emergency (ER) | payer OTHER ==
[~2021-03-12] VITALS: Ht 177.8 cm; Wt 83.0 kg
[~2021-03-12 14:37] MED LIST changes: +CARAFATE1 GM/10 ML PO; +FLEXERIL PO; +NORCO 5-325 TA1 EAC2 PO; +OMEPRAZOLE 20 M20 M1 PO; +ONDANSETRON HCL4 M2 PO; +PERCOCET 7.5-31 EAC1 PO
--- NOTE | 2021-03-12 15:52 | EKG ---
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 : 1970 Requested By: Oswaldo Garber Order Number: [id number] MD: Molina Webb Measurements Intervals [place] Rate: 58 P: 36 [place]: 138 QRS: 25 QRSD: 98 T: 20 QT: 420 QTc: 413 Interpretive Statements Sinus rhythm Borderline T abnormalities, inferior leads Baseline wander in lead(s) II,III,aVF Compared to ECG 07/16/2020 12:33:53 no change Electronically Signed On 03-12-2021 15:52:02 CDT by Molina Webb [email or web address] <ELECTRONICALLY SIGNED> By: Molina Webb MD, [facility] 03/12/21 1552 1453 1453 Molina Webb MD, [facility] /EPI
[2021-03-12] MEDS ORDERED: HYDROCODON-ACE1 EAC7 PO (16:54)
[2021-03-12 17:45] VITALS: BP 135/78
== END 2021-03-12 17:48 | disposition home or self-care (01) ==
LOC: M.ERS 14:37
DX: S22.22XA Fracture of body of sternum, initial encounter for closed fracture (principal); N18.6 End stage renal disease; I25.2 Old myocardial infarction; Z99.2 Dependence on renal dialysis; Z87.891 Personal history of nicotine dependence; V48.5XXA Car driver injured in noncollision transport accident in traffic accident, initial encounter; Y93.I9 Activity, other involving external motion; Y92.488 Other paved roadways as the place of occurrence of the external cause; Y99.8 Other external cause status

== ENCOUNTER 2021-03-27 11:25 | Emergency (ER) | payer OTHER ==
[~2021-03-27] VITALS: Ht 177.8 cm; Wt 80.7 kg
[~2021-03-27 11:25] MED LIST changes: +HYDROCODON-ACE1 EAC7 PO
[2021-03-27 12:03] LABS: HEMATOCRIT 44.6 % (37.0-47.0); HEMOGLOBIN 14.7 gm/dL (12.0-15.0); MCH 29.9 pg (26.0-34.0); MCHC 32.9 g/dL (28.0-37.0); MCV 90.8 fL (80.0-100.0); MPV 9.7 fl. (7.2-11.1); RBC 4.92 mil/uL (4.20-5.00); RDW-CV 14.6 % (10.5-14.5); WBC 10.6 thou/uL (4.0-11.0)
[2021-03-27 12:11] LABS: CALCIUM 9.7 mg/dL (8.5-10.1); CREATININE 0.9 mg/dL (0.6-1.3); POTASSIUM 5.1 mmol/L (3.5-5.1)
[2021-03-27] MEDS ORDERED: HYDROCODON-ACE1 EAC7 PO (12:29)
[2021-03-27 13:00] VITALS: BP 135/75
--- NOTE | 2021-03-27 15:49 | EKG ---
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 Gravity Flow: NATE : 1970 Requested By: Dinesh Nicole Order Number: [id number] MD: Molina Webb Measurements Intervals [place] Rate: 51 P: -80 [place]: 88 QRS: 28 QRSD: 93 T: 29 QT: 431 QTc: 397 Interpretive Statements Ectopic atrial rhythm Short [place] interval Baseline wander in lead(s) V2 Compared to ECG 03/12/2021 14:53:06 Ectopic atrial rhythm now present Electronically Signed On 03-27-2021 15:49:19 CDT by Molina Webb [email or web address] <ELECTRONICALLY SIGNED> By: Molina Webb MD, [facility] 03/27/21 1549 1203 1203 Molina Webb MD, [facility] /EPI
== END 2021-03-27 13:00 | disposition home or self-care (01) ==
LOC: M.ERS 11:25
PROVIDERS: Emergency Medicine Emergency Medical Services
DX: S22.20XA Unspecified fracture of sternum, initial encounter for closed fracture (principal); Z99.2 Dependence on renal dialysis; Z87.891 Personal history of nicotine dependence; X58.XXXA Exposure to other specified factors, initial encounter; Y93.89 Activity, other specified; Y92.89 Other specified places as the place of occurrence of the external cause; Y99.8 Other external cause status

== ENCOUNTER 2021-05-06 13:24 | Emergency (ER) | payer OTHER ==
[~2021-05-06] VITALS: Ht 177.8 cm; Wt 76.2 kg
[2021-05-06] MEDS ORDERED: CELEXA 20 MG TA20 MG PO (13:38)
[2021-05-06 14:05] LABS: ABSOLUTE BASOPHILS 0.1 thou/uL (0.0-0.2); ABSOLUTE EOSINOPHILS 0.2 thou/uL (0.0-0.7); ABSOLUTE LYMPHOCYTES 1.9 thou/uL (0.8-5.3); ABSOLUTE MONOCYTES 0.6 thou/uL (0.0-1.2); BASOPHILS 1.2 %; EOSINOPHILS 2.4 %; HEMATOCRIT 42.4 % (37.0-47.0); HEMOGLOBIN 14.6 gm/dL (12.0-15.0); LYMPHOCYTES 19.3 %; MCH 31.6 pg (26.0-34.0); MCHC 34.5 g/dL (28.0-37.0); MCV 91.4 fL (80.0-100.0); MONOCYTES 5.7 %; MPV 10.5 fl. (7.2-11.1); NUCLEATED RBCS 0 /100WBC; PLATELET COUNT* 169 thou/uL (150-400); POLYS 71.4 %; RBC 4.63 mil/uL (4.20-5.00); RDW-CV 14.3 % (10.5-14.5); WBC 9.9 thou/uL (4.0-11.0)
[2021-05-06 14:08] LABS: URINE BILIRUBIN NEGATIVE (Negative); URINE BLOOD NEGATIVE (Negative); URINE CLARITY CLEAR; URINE COLOR YELLOW; URINE GLUCOSE-RANDOM NEGATIVE (Negative); URINE KETONES NEGATIVE (Negative); URINE LEUKOCYTES-REFLEX NEGATIVE (Negative); URINE NITRITE-REFLEX NEGATIVE (Negative); URINE PROTEIN NEGATIVE (Negative); URINE SPECIFIC GRAVITY 1.015 (1.005-1.030); URINE UROBILINOGEN 0.2 E.U./dl (0.2-1.0)
[2021-05-06 14:13] LABS: CALCIUM 9.1 mg/dL (8.5-10.1); POTASSIUM 4.5 mmol/L (3.5-5.1)
[2021-05-06 14:18] LABS: ALBUMIN 3.9 g/dL (3.4-5.0); TOTAL BILIRUBIN 0.3 mg/dL (<0.1-1.0); TOTAL PROTEIN 7.3 g/dL (6.4-8.2)
[2021-05-06] MEDS ORDERED: BUTALB-APAP-CA1 EACH PO (15:10)
--- NOTE | 2021-05-06 15:53 | EKG ---
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: : 1970 Requested By: Maxime Rodriguez Order Number: [id number] MD: Nestor Piedra Measurements Intervals [place] Rate: 59 P: -16 [place]: 106 QRS: 54 QRSD: 90 T: 55 QT: 428 QTc: 424 Interpretive Statements Sinus or ectopic atrial rhythm Short [place] interval Compared to ECG 03/27/2021 12:03:10 No significant interval change Electronically Signed On 05-06-2021 15:52:49 CDT by Nestor Piedra [email or web address] <ELECTRONICALLY SIGNED> By: Nestor Piedra MD, [facility] 05/06/21 1552 1406 1406 Nestor Piedra MD, [facility] /EPI
[2021-05-06 16:04] VITALS: BP 105/55
== END 2021-05-06 16:04 | disposition home or self-care (01) ==
LOC: M.ERS 13:24
PROVIDERS: Nurse Practitioner Psychiatric/Mental Health
DX: R51.9 Headache, unspecified (principal); R42 Dizziness and giddiness; R06.02 Shortness of breath; R63.4 Abnormal weight loss; I25.2 Old myocardial infarction; Z79.899 Other long term (current) drug therapy; Z87.891 Personal history of nicotine dependence

== ENCOUNTER 2021-05-15 18:19 | Emergency (ER) | payer OTHER ==
[~2021-05-15] VITALS: Ht 172.7 cm; Wt 77.1 kg
[~2021-05-15 18:19] MED LIST changes: +BUTALB-APAP-CA1 EACH PO; +CELEXA 20 MG TA20 MG PO
[2021-05-15] MEDS ORDERED: CEPHALEXIN500 MG PO (19:54)
[2021-05-15] MEDS ORDERED: CIPROFLOXIN HC2.5 M1 OPHTHALMIC (19:58)
[2021-05-15 20:13] VITALS: BP 119/80
== END 2021-05-15 20:14 | disposition home or self-care (01) ==
LOC: M.ERS 18:19
DX: S05.01XA Injury of conjunctiva and corneal abrasion without foreign body, right eye, initial encounter (principal); Z87.891 Personal history of nicotine dependence; X58.XXXA Exposure to other specified factors, initial encounter; Y93.89 Activity, other specified; Y92.89 Other specified places as the place of occurrence of the external cause; Y99.8 Other external cause status

== ENCOUNTER 2021-05-27 10:58 | Emergency (ER) | payer OTHER ==
[~2021-05-27] VITALS: Ht 172.7 cm; Wt 75.8 kg
[~2021-05-27 10:58] MED LIST changes: +CEPHALEXIN500 MG PO; +CIPROFLOXIN HC2.5 M1 OPHTHALMIC
[2021-05-27] MEDS ORDERED: CEPHALEXIN500 MG PO (11:22)
[2021-05-27] MEDS ORDERED: BACTRIM DS TAB1 EACH PO (11:22)
[2021-05-27] MEDS ORDERED: NORCO5 PO (11:22)
[2021-05-27 11:42] VITALS: BP 122/64
== END 2021-05-27 11:42 | disposition home or self-care (01) ==
LOC: M.ERS 10:58
DX: S80.861A Insect bite (nonvenomous), right lower leg, initial encounter (principal); L08.9 Local infection of the skin and subcutaneous tissue, unspecified; Z87.891 Personal history of nicotine dependence; Z99.2 Dependence on renal dialysis; W57.XXXA Bitten or stung by nonvenomous insect and other nonvenomous arthropods, initial encounter; Y93.89 Activity, other specified; Y92.89 Other specified places as the place of occurrence of the external cause; Y99.8 Other external cause status

== ENCOUNTER 2021-06-05 11:02 | Emergency (ER) | payer OTHER ==
[~2021-06-05] VITALS: Ht 172.7 cm; Wt 75.8 kg
[~2021-06-05 11:02] MED LIST changes: +NORCO5 PO
[2021-06-05] MEDS ORDERED: DOXYCYCLINE 10100 MG PO (11:36)
[2021-06-05 12:14] VITALS: BP 116/67
== END 2021-06-05 12:14 | disposition home or self-care (01) ==
LOC: M.ERS 11:02
DX: L03.115 Cellulitis of right lower limb (principal); Z87.891 Personal history of nicotine dependence

== ENCOUNTER → 2021-06-06 | Outpatient (CLI) | payer OTHER ==
[~2021-06-06] MED LIST changes: +DOXYCYCLINE 10100 MG PO
== END ==
LOC: M.WC 08:50
PROVIDERS: ATTEND Family Medicine
DX: T63.331A Toxic effect of venom of brown recluse spider, accidental (unintentional), initial encounter (principal); S81.801A Unspecified open wound, right lower leg, initial encounter; L98.8 Other specified disorders of the skin and subcutaneous tissue; F17.200 Nicotine dependence, unspecified, uncomplicated; Z79.899 Other long term (current) drug therapy; X58.XXXA Exposure to other specified factors, initial encounter; Y93.89 Activity, other specified; Y92.89 Other specified places as the place of occurrence of the external cause; Y99.8 Other external cause status

== ENCOUNTER → 2021-06-13 | Outpatient (CLI) | payer OTHER | LOC: M.WC 10:30 | PROVIDERS: ATTEND Family Medicine | DX: T63.331D Toxic effect of venom of brown recluse spider, accidental (unintentional), subsequent encounter (principal); S81.801D Unspecified open wound, right lower leg, subsequent encounter; L98.8 Other specified disorders of the skin and subcutaneous tissue; F17.200 Nicotine dependence, unspecified, uncomplicated; Z79.899 Other long term (current) drug therapy; X58.XXXD Exposure to other specified factors, subsequent encounter ==

== ENCOUNTER → 2021-06-20 | Outpatient (CLI) | payer OTHER | LOC: M.WC 10:29 | PROVIDERS: ATTEND Family Medicine | DX: T63.331D Toxic effect of venom of brown recluse spider, accidental (unintentional), subsequent encounter (principal); S81.801D Unspecified open wound, right lower leg, subsequent encounter; L97.212 Non-pressure chronic ulcer of right calf with fat layer exposed; W57.XXXD Bitten or stung by nonvenomous insect and other nonvenomous arthropods, subsequent encounter ==

== ENCOUNTER → 2021-06-25 | Outpatient (CLI) | payer OTHER | LOC: M.WC 07:45 | PROVIDERS: ATTEND Surgery | DX: T63.331D Toxic effect of venom of brown recluse spider, accidental (unintentional), subsequent encounter (principal); S81.801D Unspecified open wound, right lower leg, subsequent encounter; L97.212 Non-pressure chronic ulcer of right calf with fat layer exposed; W57.XXXD Bitten or stung by nonvenomous insect and other nonvenomous arthropods, subsequent encounter ==

== ENCOUNTER → 2021-07-02 | Outpatient (CLI) | payer OTHER | LOC: M.WC 10:19 | PROVIDERS: ATTEND Surgery | DX: T63.331D Toxic effect of venom of brown recluse spider, accidental (unintentional), subsequent encounter (principal); S81.801D Unspecified open wound, right lower leg, subsequent encounter; L97.212 Non-pressure chronic ulcer of right calf with fat layer exposed; W57.XXXD Bitten or stung by nonvenomous insect and other nonvenomous arthropods, subsequent encounter ==

== ENCOUNTER → 2021-07-09 | Outpatient (CLI) | payer OTHER | LOC: M.WC 09:22 | PROVIDERS: ATTEND Surgery | DX: T63.331D Toxic effect of venom of brown recluse spider, accidental (unintentional), subsequent encounter (principal); S81.801D Unspecified open wound, right lower leg, subsequent encounter; L98.8 Other specified disorders of the skin and subcutaneous tissue; F17.200 Nicotine dependence, unspecified, uncomplicated; Z79.899 Other long term (current) drug therapy; X58.XXXD Exposure to other specified factors, subsequent encounter ==

== ENCOUNTER → 2021-07-16 | Outpatient (CLI) | payer OTHER | LOC: M.WC 09:16 | PROVIDERS: ATTEND Surgery | DX: T63.331D Toxic effect of venom of brown recluse spider, accidental (unintentional), subsequent encounter (principal); S81.801D Unspecified open wound, right lower leg, subsequent encounter; L98.8 Other specified disorders of the skin and subcutaneous tissue; F17.200 Nicotine dependence, unspecified, uncomplicated; Z79.899 Other long term (current) drug therapy; X58.XXXD Exposure to other specified factors, subsequent encounter ==

== ENCOUNTER → 2021-07-23 | Outpatient (CLI) | payer OTHER | LOC: M.WC 10:15 | PROVIDERS: ATTEND Surgery | DX: T63.331D Toxic effect of venom of brown recluse spider, accidental (unintentional), subsequent encounter (principal); S81.801D Unspecified open wound, right lower leg, subsequent encounter; L98.8 Other specified disorders of the skin and subcutaneous tissue; F17.200 Nicotine dependence, unspecified, uncomplicated; X58.XXXD Exposure to other specified factors, subsequent encounter ==

== ENCOUNTER → 2021-07-30 | Outpatient (CLI) | payer OTHER | LOC: M.WC 09:43 | PROVIDERS: ATTEND Surgery | DX: T63.331D Toxic effect of venom of brown recluse spider, accidental (unintentional), subsequent encounter (principal); S81.801D Unspecified open wound, right lower leg, subsequent encounter; L98.8 Other specified disorders of the skin and subcutaneous tissue; F17.200 Nicotine dependence, unspecified, uncomplicated; X58.XXXD Exposure to other specified factors, subsequent encounter ==

== ENCOUNTER 2021-08-05 15:55 | Inpatient (IN) | payer OTHER ==
[~2021-08-05] VITALS: Ht 172.7 cm; Wt 72.9 kg
[2021-08-05 16:00] VITALS: BP 115/55
--- NOTE | 2021-08-05 16:00 | NUR ---
PT STATES SHE DOES NOT WANT ANYONE TO KNOW SHE IS HERE IN THIS HOSPITAL OTHER THAN [facility].
[2021-08-05 16:17] LABS: PCO2 29.4 mmHg (35.0-45.0); pH 7.374 (7.340-7.450)
--- NOTE | 2021-08-05 16:19 | NUR ---
[facility] CONTACTED
[2021-08-05 16:24] LABS: ABSOLUTE BASOPHILS 0.1 thou/uL (0.0-0.2); ABSOLUTE EOSINOPHILS 0.2 thou/uL (0.0-0.7); ABSOLUTE LYMPHOCYTES 2.6 thou/uL (0.8-5.3); ABSOLUTE MONOCYTES 0.6 thou/uL (0.0-1.2); BASOPHILS 1.5 %; HEMATOCRIT 39.4 % (37.0-47.0); HEMOGLOBIN 13.2 gm/dL (12.0-15.0); LYMPHOCYTES 27.8 %; MCHC 33.5 g/dL (28.0-37.0); MCV 92.5 fL (80.0-100.0); MONOCYTES 5.8 %; MPV 9.9 fl. (7.2-11.1); NUCLEATED RBCS 0 /100WBC; PLATELET COUNT* 168 thou/uL (150-400); POLYS 62.9 %; RBC 4.26 mil/uL (4.20-5.00); RDW-CV 13.9 % (10.5-14.5); WBC 9.5 thou/uL (4.0-11.0)
[2021-08-05 16:29] LABS: PO2 130.1 mmHg (75.0-100.0)
[2021-08-05 16:33] LABS: CALCIUM 8.7 mg/dL (8.5-10.1); CREATININE 1.3 mg/dL (0.6-1.3); POTASSIUM 4.4 mmol/L (3.5-5.1)
[2021-08-05 16:38] LABS: ALBUMIN 3.7 g/dL (3.4-5.0); TOTAL BILIRUBIN 0.3 mg/dL (<0.1-1.0); TOTAL PROTEIN 6.3 g/dL (6.4-8.2)
[2021-08-05 16:43] LABS: URINE BILIRUBIN NEGATIVE (Negative); URINE BLOOD TRACE (Negative); URINE CLARITY CLEAR; URINE COLOR YELLOW; URINE GLUCOSE-RANDOM NEGATIVE (Negative); URINE KETONES TRACE (Negative); URINE LEUKOCYTES-REFLEX NEGATIVE (Negative); URINE NITRITE-REFLEX NEGATIVE (Negative); URINE PROTEIN NEGATIVE (Negative); URINE UROBILINOGEN 0.2 E.U./dl (0.2-1.0)
[2021-08-05 16:48] LABS: ALCOHOL < 10 mg/dL (<10); SALICYLATE 5.2 mg/dL (2.8-20.0)
[2021-08-05 16:50] LABS: ACETAMINOPHEN < 2 ug/mL (10-30)
[2021-08-05 16:57] LABS: AMP/METHAMP Negative (Negative); BARBITURATES Negative (Negative); BENZODIAZEPINES Negative (Negative); COCAINE Negative (Negative); METHADONE Negative (Negative); OPIATES Negative (Negative); PCP Negative (Negative); THC Negative (Negative)
--- NOTE | 2021-08-05 17:54 | EKG ---
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 : 1970 Requested By: Julian Swanson Order Number: [id number] MD: Geovany Henry Measurements Intervals [place] Rate: 68 P: 255 ID: 97 QRS: 28 QRSD: 85 T: 34 QT: 399 QTc: 425 Interpretive Statements Ectopic atrial rhythm Short [place] interval Baseline wander in lead(s) II,III,aVL,aVF,V2,V3,V4,V5,V6 Compared to ECG 05/06/2021 14:06:10 No significant changes Electronically Signed On 08-05-2021 17:53:45 CDT by Geovany Henry [email or web address] <ELECTRONICALLY SIGNED> By: Geovany Henry MD, [facility] 08/05/21 1753 1558 1558 Geovany Henry MD, [facility] /EPI
--- NOTE | 2021-08-05 20:00 | NUR ---
PT FELL GETTING BACK INTO BED AFTER BEING ON THE COMMODE. PT STATED TO THE TECH THAT SHE REFUSED TO PEE IN THE BED WITH A PURWICK SO THE TECH DECIDED TO OBTAIN A BEDSIDE COMMODE AND GET THE PATIENT UP WITHOUT NOTIFYING THIS NURSE. THE TECH NOTIFIED THIS NURSE THAT THE PATIENT WAS ON THE GROUND AFTER TRYING TO GET THE PATIENT BACK INTO BED. THIS NURSE FOUND THE PATIENT ON THE GROUND, ALERT, VITAL SIGNS STABLE, COMPLAINING OF LEFT SHOULDER AND ARM PAIN, HOLDING ONTO ARM. THIS RN NOTIFIED THE CHARGE NURSE, MARINE TOWER OPERATOR AND DR. LUI. NEW ORDERS RECIEVED FOR X-RAYS, PAIN MEDICATION, WILL CONTINUE TO MONITOR.
[2021-08-05 21:00] VITALS: BP 153/82
--- NOTE | 2021-08-05 23:39 | NUR ---
SPOKE WITH POISON CONTROL REGARDING THIS PATIENT. THEY REQUESTED A REPEAT ABG AND A SERUM OSMOLALITY TEST. THEY RECOMMEND 1-2MEQ/KG OF BICARB IN THE FIRST 12 HOURS, THE PATIENT CURRENTLY HAS ONLY HAD 50MEQ AND WOULD NEED 72-144MEQ TO MEET THE RECOMMENDATION. DR. LUI PAGED TO NOTIFY HER OF THEIR RECOMMENDATION.
[2021-08-06 00:42] LABS: BE -14.6 mmol/L (-2 to +3); PCO2 26.2 mmHg (35.0-45.0); PO2 112.9 mmHg (75.0-100.0)
[2021-08-06 00:44] LABS: pH 7.239 (7.340-7.450)
[2021-08-06 01:00] VITALS: BP 125/74
--- NOTE | 2021-08-06 01:47 | NUR ---
SPOKE WITH POISON CONTROL TO UPDATE THEM ON THE CRITICAL BLOOD GAS RESULTS. THEY RECOMMEND A RENAL CONSULT AND A JURADO CATHETER TO MONTIOR RENAL OUTPUT. PAGE OUT TO DR. LUI TO NOTIFY HER OF THEIR RECOMMENDATION.
--- NOTE | 2021-08-06 03:17 | NUR ---
SPOKE WITH DR. LUI REGARDING PT'S HEART RATE IN THE 30'S. DR. LUI WANTS A ROUTINE CARDIOLOGY CONSULT, BUT STATES TO MAKE IT STAT IF THE PATIENT BECOMES MORE LETHARGIC, DIZZY, OR COMPLAINS OF A HEADACHE, WELL IF IT STAYS IN THE 30'S. SHE ALSO REQUESTS I CALL POISON CONTROL BACK AND ASK THEIR RECOMMENDATIONS.
--- NOTE | 2021-08-06 03:24 | NUR ---
SPOKE WITH JUNIOR AT POISON CONTROL REGARDING BRADYCARDIA. POISON CONTROL RECOMMENDS ORDERING A STAT MAGNESIUM, LACTIC ACID, SERUM OSMOLALITY, IONIZED CALCIUM AND TOTAL CALCIUM AND A STAT ABG AFTER THE BICARB DRIP IS DONE INFUSING. WILL CONTINUE TO MONITOR.
[2021-08-06 04:43] LABS: ALBUMIN 3.3 g/dL (3.4-5.0); CALCIUM 8.7 mg/dL (8.5-10.1); CREATININE 0.9 mg/dL (0.6-1.3); POTASSIUM 4.4 mmol/L (3.5-5.1); TOTAL BILIRUBIN 0.2 mg/dL (<0.1-1.0); TOTAL PROTEIN 6.5 g/dL (6.4-8.2)
[2021-08-06 05:12] VITALS: BP 117/64
[2021-08-06 06:11] LABS: BE -9.4 mmol/L (-2 to +3); PCO2 26.5 mmHg (35.0-45.0); PO2 110.5 mmHg (75.0-100.0); pH 7.353 (7.340-7.450)
[2021-08-06 09:00] VITALS: BP 121/68
[2021-08-06 09:17] LABS: BE -8.9 mmol/L (-2 to +3); PCO2 26.6 mmHg (35.0-45.0)
[2021-08-06 09:19] LABS: PO2 146.2 mmHg (75.0-100.0)
[2021-08-06 09:33] LABS: ALBUMIN 3.6 g/dL (3.4-5.0); CALCIUM 8.8 mg/dL (8.5-10.1); CREATININE 0.9 mg/dL (0.6-1.3); POTASSIUM 4.2 mmol/L (3.5-5.1); TOTAL BILIRUBIN 0.3 mg/dL (<0.1-1.0); TOTAL PROTEIN 6.5 g/dL (6.4-8.2)
[2021-08-06 10:24] LABS: CREATININE 0.8 mg/dL (0.6-1.3); POTASSIUM 3.9 mmol/L (3.5-5.1)
[2021-08-06 13:08] VITALS: BP 140/71
--- NOTE | 2021-08-06 13:13 | NUR ---
ANESTHESIA GOING TO PUT IN A CENTRAL LINE PER DR. MORGAN'S ORDERS.
--- NOTE | 2021-08-06 13:15 | NUR ---
DISCUSSED WITH ABOUT CENTRAL LINE PLACEMENT CONTACTED HS WILL BE DOING PROCEDURE CONSENT OBTAINED AND SIGNED.
[2021-08-06 13:28] LABS: CALCIUM 9.1 mg/dL (8.5-10.1); POTASSIUM 3.9 mmol/L (3.5-5.1)
--- NOTE | 2021-08-06 15:12 | NUR ---
THIS RN SPOKE TO DR. SEWELL, HE STATES THE PATIENT DOES NOT NEED DIALYSIS AT THIS TIME AND TO CONTINUE BMP DRAWS EVERY 4 HOURS.
[2021-08-06 15:20] LABS: BE 1.4 mmol/L (-2 to +3); PCO2 36.6 mmHg (35.0-45.0); PO2 97.3 mmHg (75.0-100.0); pH 7.454 (7.340-7.450)
--- NOTE | 2021-08-06 16:13 | 2DMMODE ---
[place] [address] 2 D/M-MODE ECHOCARDIOGRAM Name: STEPHENIE POWELL Room: [place] [address] ADM IN .R.#: [id number] Admission: 08/05/21 Attend Phys: Justin Werner Discharge: Date of : 70 Date of Service: 08/06/21 1613 Report #: [id number] THIS REPORT FOR: cc: Tanner Engel James A. DO Holkins, John M. MD [facility] ~ APPROVED REPORT Study performed: 08/06/2021 14:24:14 EXAM: Comprehensive 2D, Doppler, and color-flow Echocardiogram Patient Location: In-Patient Room #: ER Status: routine BSA: 1.86 HR: 67 bpm BP: 140/71 mmHg Rhythm: NSR Other Information Study Quality: Good Indications Bradycardia 2D Dimensions IVSd: 10.78 (7-11mm) LVOT Diam: 19.48 (18-24mm) LVDd: 45.14 mm PWd: 9.41 (7-11mm) LVDs: 28.86 (25-40mm) Aortic Root: 28.23 mm Volumes Left Atrial Volume (Systole) LA ESV Index: 21.30 mL/m2 Aortic Valve AoV Peak Mateo.: 1.69 m/s AO Peak Gr.: 11.38 mmHg LVOT Max P.46 mmHg AO Mean Gr.: 6.07 mmHg LVOT Mean P.70 mmHg LVOT Max V: 1.37 m/s AO V2 VTI: 31.75 cm LVOT Mean V: 0.89 m/s THERESE (VTI): 2.52 cm2 LVOT V1 VTI: 26.79 [place] [address] 2 D/M-MODE ECHOCARDIOGRAM Name: STEPHENIE POWELL Room: [address] IN ..#: [id number] Admission: 08/05/21 Attend Phys: Justin Werner Discharge: Date of : 70 Date of Service: 08/06/21 1613 Report #: [id number] Mitral Valve E/A Ratio: 2.22 MV Decel. Time: 205.12 ms MV E Max Mateo.: 1.13 m/s MV PHT: 59.49 ms MVA (PHT): 3.70 cm2 TDI E/Lateral E': 5.38 E/Medial E': 6.28 Medial E' Mateo.: 0.18 m/s Lateral E' Mateo.: 0.21 m/s Pulmonary Valve PV Peak Mateo.: 1.09 m/s PV Peak Gr.: 4.73 mmHg Tricuspid Valve RAP Estimate: 5.00 mmHg TR Peak Gr.: 18.93 mmHg RVSP: 23.00 mmHg PA Pressure: 23.00 mmHg Left Ventricle The left ventricle is normal size. There is normal LV segmental wall motion. There is normal left ventricular wall thickness. Left ventricular systolic function is normal. The left ventricular ejection fraction is within the normal range. LVEF is 60-65%. The left ventricular diastolic function is normal. Right Ventricle The right ventricle is normal size. The right ventricular systolic function is normal. Atria The left atrium size is normal. The right atrium size is normal. Aortic Valve The aortic valve is normal in structure. No aortic regurgitation is present. There is no aortic valvular stenosis. Mitral Valve The mitral valve is normal in structure. There is no mitral valve regurgitation noted. No evidence of mitral valve stenosis. Tricuspid Valve The tricuspid valve is normal in structure. Trace tricuspid regurgitation. [place] [address] 2 D/M-MODE ECHOCARDIOGRAM Name: STEPHENIE POWELL Room: [address] IN [facility]#: [id number] Admission: 08/05/21 Attend Phys: Justin Werner Discharge: Date of : 70 Date of Service: 08/06/21 1613 Report #: [id number] Pulmonic Valve The pulmonary valve is normal in structure. There is no pulmonic valvular regurgitation. Great Vessels The aortic root is normal in size. IVC is normal in size and collapses >50% with inspiration. Pericardium There is no pericardial effusion. <Conclusion> The left ventricle is normal size. There is normal left ventricular wall thickness. Left ventricular systolic function is normal. The left ventricular ejection fraction is within the normal range. LVEF is 60-65%. The left ventricular diastolic function is normal. The right ventricle is normal size. The left atrium size is normal. The aortic valve is normal in structure. The mitral valve is normal in structure. The tricuspid valve is normal in structure. IVC is normal in size and collapses >50% with inspiration. There is no pericardial effusion. There is normal LV segmental wall motion. <ELECTRONICALLY SIGNED> By: Nestor Piedra MD, FACC 08/06/21 [phone] Nestor Piedra MD, FACC /INF
[2021-08-06 17:24] LABS: CALCIUM 8.3 mg/dL (8.5-10.1); CREATININE 0.9 mg/dL (0.6-1.3); POTASSIUM 3.6 mmol/L (3.5-5.1)
[2021-08-06 17:50] VITALS: BP 116/74
--- NOTE | 2021-08-06 19:32 | NUR ---
DR. SMALL PAGED REGARDING PTS REQUEST FOR PAIN MEDICATION. PT STATES SHE HAS A HEADACHE.
[2021-08-06 21:00] VITALS: BP 108/63
[2021-08-06 22:16] LABS: CALCIUM 8.2 mg/dL (8.5-10.1); POTASSIUM 3.3 mmol/L (3.5-5.1)
[2021-08-07] VITALS (8 sets, daily range): BP systolic 106–135; BP diastolic 57–81
[2021-08-07 01:48] LABS: CALCIUM 8.4 mg/dL (8.5-10.1); CREATININE 0.8 mg/dL (0.6-1.3); POTASSIUM 3.3 mmol/L (3.5-5.1)
[2021-08-07 06:01] LABS: HEMATOCRIT 36.2 % (37.0-47.0); HEMOGLOBIN 12.2 gm/dL (12.0-15.0); MCH 30.8 pg (26.0-34.0); MCHC 33.6 g/dL (28.0-37.0); MCV 91.4 fL (80.0-100.0); MPV 10.2 fl. (7.2-11.1); RBC 3.96 mil/uL (4.20-5.00); RDW-CV 13.4 % (10.5-14.5); WBC 8.5 thou/uL (4.0-11.0)
[2021-08-07 06:18] LABS: ALBUMIN 2.9 g/dL (3.4-5.0); CREATININE 0.9 mg/dL (0.6-1.3); TOTAL BILIRUBIN 0.3 mg/dL (<0.1-1.0); TOTAL PROTEIN 5.4 g/dL (6.4-8.2)
--- NOTE | 2021-08-07 10:40 | NUR ---
[facility] CONTACTED FOR A PSYCH ASSESSMENT.
--- NOTE | 2021-08-07 11:25 | NUR ---
[facility] PSYCHIATRIC ASSESSMENT TEAM AT BEDSIDE, THEY DO NOT RECCOMMEND PLACEMENT AT THIS TIME D/T PT ADAMANTLY REFUSING SUICIDAL IDEATIONS AT THIS TIME. DR. MORGAN NOTIFIED VIA PAGING SYSTEM.
[2021-08-07 12:17] LABS: CALCIUM 8.4 mg/dL (8.5-10.1)
--- NOTE | 2021-08-07 13:17 | NUR ---
DR. MORGAN CALLED REGARDING LABS HAVING RESULTED AND REQUEST FOR CHANGE TO TELEMETRY STATUS.
--- NOTE | 2021-08-07 18:37 | NUR ---
Assumed care at 1600. Pt is alert and oriented. Assessment done and charted. Pt denies any SI. Will continue Plan of care. Pt to dc'd tomorrow.
[2021-08-08] VITALS: BP 124/71
[2021-08-08 04:00] VITALS: BP 136/69
[2021-08-08 07:09] LABS: HEMATOCRIT 37.2 % (37.0-47.0); HEMOGLOBIN 12.3 gm/dL (12.0-15.0); MCH 30.6 pg (26.0-34.0); MCHC 33.1 g/dL (28.0-37.0); MCV 92.4 fL (80.0-100.0); MPV 10.6 fl. (7.2-11.1); RBC 4.02 mil/uL (4.20-5.00); RDW-CV 13.7 % (10.5-14.5); WBC 7.3 thou/uL (4.0-11.0)
[2021-08-08 07:35] LABS: ALBUMIN 2.8 g/dL (3.4-5.0); CALCIUM 8.5 mg/dL (8.5-10.1); CREATININE 0.9 mg/dL (0.6-1.3); MAGNESIUM 1.7 mg/dL (1.8-2.4); TOTAL BILIRUBIN 0.2 mg/dL (<0.1-1.0); TOTAL PROTEIN 5.6 g/dL (6.4-8.2)
[2021-08-08 08:48] VITALS: BP 140/84
[2021-08-08 12:00] VITALS: BP 126/76
[2021-08-08 14:20] VITALS: BP 126/76
--- NOTE | 2021-08-08 15:20 | NUR ---
PATIENT HAS REMAINED A&OX4, PLEASANT AND COOPERATIVE WITH CARES THIS SHIFT. PATIENT DISCHARGED PER CLEARANCE FROM TELEPSYCH AND DR. BALL. IVS REMOVED FROM RIGHT FOREARM WELL RIGHT IJ (PRESSURE DRESSING APPLIED AND PATIENT INFORMED TO LEAVE ON FOR 24HRS.) WORK EXCUSE GIVEN FOR 08/05-08/08 AND MAY RETURN ON 08/09. PATIENT AMBULATED OFF UNIT ACCOMPANIED BY NURSING STAFF AT APPROX. 1515 TO MEET FRIEND AT MAIN ENTRANCE.
[2021-08-08 15:23] VITALS: BP 126/76
--- NOTE | 2021-08-08 15:49 | NUR ---
PLAN OF CARE: PHYSICIAN INFORMS THAT TELE PSYCH EVAL HAS BEEN COMPLETED AND PLAN FOR THE PT TO D/C TODAY HOME WITH SELF-CARE. [facility] PROVIDED PT WITH OUTPATIENT RESOURCES. PT ARRANGED PYSYCHIATRIST F/U APPOINTMENT. CM WILL REMAIN AVAILABLE TO ASSIST AND FOLLOW NEEDED.
--- NOTE | 2021-08-08 17:08 | NUR ---
WOUND NURSE: PATIENT SEEN FOR WOUND ASSESSMENT OF SPIDER BITE ON RLE. MEASURES .6 X .4 X 0.3 CM. CONTAINS RED, NONGRANULATING TISSUE IN THE WOUND BED. SMALL AMOUNT OF DRAINAGE NOTED. WOUND CARE PROVIDED PRESCRIBED. INSTRUCTION PROVIDED TO FOLLOW UP IN [facility] HERE AT [facility] SHE IS ALREADY A PATIETN THERE. STATES SHE UNDERSTANDS.
== END 2021-08-08 15:15 | disposition home or self-care (01) | DRG 918 ==
LOC: M.ERS 15:55 → M.TBA-ER 16:55 → M.2W 08-07 15:51
PROVIDERS: Family Medicine; Internal Medicine; Internal Medicine Nephrology; ADMIT Internal Medicine; ATTEND Internal Medicine
PROC: 02HV33Z Insertion of Infusion Device into Superior Vena Cava, Percutaneous Approach (ICD-10-PCS; principal; 2021-08-06)
DX: T52.8X2A Toxic effect of other organic solvents, intentional self-harm, initial encounter (principal); E87.0 Hyperosmolality and hypernatremia; E87.2 Acidosis; N17.9 Acute kidney failure, unspecified; F17.210 Nicotine dependence, cigarettes, uncomplicated; E87.8 Other disorders of electrolyte and fluid balance, not elsewhere classified; F32.9 Major depressive disorder, single episode, unspecified; Z20.822 Contact with and (suspected) exposure to COVID-19; I25.2 Old myocardial infarction; Y92.89 Other specified places as the place of occurrence of the external cause; T14.91XA Suicide attempt, initial encounter; X83.8XXA Intentional self-harm by other specified means, initial encounter; Y93.89 Activity, other specified; Y99.8 Other external cause status

== ENCOUNTER 2021-08-31 11:01 | Emergency (ER) | payer OTHER ==
[~2021-08-31] VITALS: Ht 175.3 cm; Wt 72.1 kg
[2021-08-31 11:16] LABS: URINE BILIRUBIN NEGATIVE (Negative); URINE BLOOD TRACE (Negative); URINE CLARITY CLEAR; URINE COLOR YELLOW; URINE GLUCOSE-RANDOM NEGATIVE (Negative); URINE KETONES 2+ (Negative); URINE LEUKOCYTES NEGATIVE (Negative); URINE NITRITE NEGATIVE (Negative); URINE PROTEIN NEGATIVE (Negative); URINE SPECIFIC GRAVITY 1.025 (1.005-1.030); URINE UROBILINOGEN 0.2 E.U./dl (0.2-1.0)
[2021-08-31] MEDS ORDERED: ZOLOFT50 M1 PO (11:16)
[2021-08-31 11:21] LABS: ABSOLUTE BASOPHILS 0.1 thou/uL (0.0-0.2); ABSOLUTE EOSINOPHILS 0.2 thou/uL (0.0-0.7); ABSOLUTE MONOCYTES 0.4 thou/uL (0.0-1.2); ABSOLUTE NEUTROPHILS 6.9 thou/uL (1.6-8.1); BASOPHILS 1.3 %; EOSINOPHILS 1.8 %; HEMATOCRIT 45.6 % (37.0-47.0); HEMOGLOBIN 15.5 gm/dL (12.0-15.0); LYMPHOCYTES 20.7 %; MCV 91.2 fL (80.0-100.0); MONOCYTES 4.4 %; MPV 9.5 fl. (7.2-11.1); NUCLEATED RBCS 0 /100WBC; PLATELET COUNT* 195 thou/uL (150-400); POLYS 71.8 %; RDW-CV 13.8 % (10.5-14.5); WBC 9.6 thou/uL (4.0-11.0)
[2021-08-31 11:37] LABS: CALCIUM 9.1 mg/dL (8.5-10.1); POTASSIUM 4.5 mmol/L (3.5-5.1)
[2021-08-31 11:38] LABS: AMP/METHAMP Negative (Negative); BARBITURATES Negative (Negative); BENZODIAZEPINES Negative (Negative); COCAINE Negative (Negative); METHADONE Negative (Negative); OPIATES Negative (Negative); PCP Negative (Negative); THC POSITIVE (Negative)
[2021-08-31 11:41] LABS: ALBUMIN 4.2 g/dL (3.4-5.0); TOTAL BILIRUBIN 0.5 mg/dL (<0.1-1.0); TOTAL PROTEIN 7.9 g/dL (6.4-8.2)
[2021-08-31 11:45] LABS: ALCOHOL < 10 mg/dL (<10); SALICYLATE 7.4 mg/dL (2.8-20.0)
[2021-08-31 11:46] LABS: ACETAMINOPHEN < 2 ug/mL (10-30)
[2021-08-31] MEDS ORDERED: PROTONIX40 MG PO (13:03)
[2021-08-31 13:15] VITALS: BP 108/71
== END 2021-08-31 13:16 | disposition home or self-care (01) ==
LOC: M.ERS 11:01
PROVIDERS: Emergency Medicine
DX: R10.13 Epigastric pain (principal); F17.210 Nicotine dependence, cigarettes, uncomplicated; N18.6 End stage renal disease; Z99.2 Dependence on renal dialysis

== ENCOUNTER 2021-11-07 13:46 | Emergency (ER) | payer OTHER ==
[~2021-11-07] VITALS: Ht 177.8 cm; Wt 74.8 kg
[~2021-11-07 13:46] MED LIST changes: +PROTONIX40 MG PO; +ZOLOFT50 M1 PO
[2021-11-07] MEDS ORDERED: AMOXIL 875 MG875 M1 PO (14:37)
[2021-11-07] MEDS ORDERED: OCUFLOX5 ML OTIC (14:37)
[2021-11-07 14:50] VITALS: BP 146/96
== END 2021-11-07 14:50 | disposition home or self-care (01) ==
LOC: M.ERS 13:46
DX: S01.311A Laceration without foreign body of right ear, initial encounter (principal); H92.01 Otalgia, right ear; Z79.899 Other long term (current) drug therapy; Z87.891 Personal history of nicotine dependence; X58.XXXA Exposure to other specified factors, initial encounter; Y93.89 Activity, other specified; Y92.89 Other specified places as the place of occurrence of the external cause; Y99.8 Other external cause status